=== PATIENT | male | born 1990 | race Caucasian/White ===

== ENCOUNTER 2016-10-24 15:38 | Emergency (ER) | payer BC ==
[2016-10-24 15:54] VITALS: BP 113/65
--- NOTE | 2016-10-24 16:31 | EDM.PDOC ---
ED HPI GENERAL MEDICAL PROBLEM - General Chief Complaint: ENT Problem Stated Complaint: OBJECT IN EYE, [id number] Time Seen by Provider: 10/24/16 16:31 Source of Information: Reports: Patient History Limitations: Reports: No Limitations - History of Present Illness INITIAL COMMENTS - FREE TEXT/NARRATIVE: pt working around dust today and feels like foreign body in right eye. flushed it at home. did not see something but not sure. does not wear contact lenses. Right Eye Pain Score (Numeric/FACES): 6 - Related Data Allergies Allergy/AdvReac Type Severity Reaction Status Date / Time No Known Allergies Allergy Verified 10/24/16 15:50 Home Meds: Home Meds . [No Known Home Meds] 10/24/16 [History] Past Medical History - Past Health History Medical/Surgical History: Denies Medical/Surgical History Social & Family History - Family History Family Medical History: Noncontributory - Tobacco Use Smoking Status *Q: Never Smoker Second Hand Smoke Exposure: No - Caffeine Use Caffeine Use: Reports: None - Recreational Drug Use Recreational Drug Use: No ED ROS GENERAL - Review of Systems Review Of Systems: See Below Constitutional: Reports: No Symptoms HEENT: Reports: Other (feels like something in eye, irritating. no visual changes. just itchy, no pressure or pain per se.) ED EXAM, DIZZINESS - Physical Exam Exam: See Below Exam Limited By: No Limitations General Appearance: Alert Eye Exam: Right Eye: Other (no erythema/edema. noted small divet or fragment in pupil at approx 2 O'clock.) Course - Vital Signs Text/Narrative:: Fluorescein stain after 2 gtts tetracaine in right eye. Observed scant divet or fragment right pupil at approx 2 O'clock position. Anes with 2 more gtts tetracaine. Using 18 guage needle, gently applied to area. Reverified and no longer see item. Suspect foreign body that was removed. Advised patient that suspect had foreign body and removed. Advised that if progressive pain, ongoing discomfort establish appointment with eye doctor for definitive evaluation. Last Recorded V/S: Last Vital Signs Temp 36.6 C 10/24/16 15:50 Pulse 56 L 10/24/16 15:50 Resp 16 10/24/16 15:50 BP 113/65 10/24/16 15:50 Pulse Ox 100 10/24/16 15:50 - Orders/Labs/Meds Meds: Medications Discontinued Medications Generic Name Dose Route Start Last Admin Trade Name Daniel PRN Reason Stop Dose Admin Ciprofloxacin Confirm 10/24/16 17:02 10/24/16 17:05 Ciloxan 0.3% Ophth Soln Administered 10/24/16 17:03 Not Given Dose 2.5 ml .ROUTE .STK-MED ONE Fluorescein Sodium 1 mg 10/24/16 16:32 10/24/16 16:38 Ful-Jennifer EYERT 10/24/16 16:33 1 mg ONETIME ONE Administration Tetracaine HCl 2 ml 10/24/16 16:33 10/24/16 16:38 Tetracaine 0.5% Steri-Unit Alondra EYERT 10/24/16 16:34 2 ml ASDIRECTED ONE Administration Tobramycin/Dexamethasone 2 ml 10/24/16 17:00 Tobradex Ophth Susp EYERT Q4H INDRA Departure - Departure Time of Disposition: 16:55 Disposition: Home, Self-Care 01 Condition: good Clinical Impression: Foreign body, eye, Corneal abrasion - Discharge Information Forms: ED Department Discharge Additional Instructions: Antibiotic as directed 2 drops in right eye 4 times a day for 7 days. If persistant discomfort, progressive redness, swelling and/or drainage, schedule an appointment with an eye doctor for definitive evaluation.
[2016-10-24] MEDS ORDERED: Fluorescein 1 MG Ophth Strip EYERT ONE (16:32)
[2016-10-24] MEDS ORDERED: Tetracaine HCl/PF 0.5% 4 ML Bottle EYERT ONE (16:33)
[2016-10-24] MEDS ORDERED: Dexamethasone/Tobramycin 0.1-0.3% Ophth Susp 2.5 ML Bottle EYERT SCH (17:00)
[2016-10-24] MEDS ORDERED: Ciprofloxacin 0.3% Ophth Soln 2.5 ML Bottle ONE (17:02)
[2016-10-24] MEDS ORDERED: Ciprofloxacin 0.3% Ophth Soln 2.5 ML Bottle EYERT ONE (17:02)
== END 2016-10-24 17:05 | disposition home or self-care (01) ==
LOC: DL.ED 15:38
DX: T15.01XA Foreign body in cornea, right eye, initial encounter (principal); X58.XXXA Exposure to other specified factors, initial encounter
CPT/HCPCS: 65220; 99283; A9270; 65205